=== PATIENT | female | born 1955 | race Caucasian/White ===

== ENCOUNTER 2021-12-22 17:27 | Inpatient (IN) | payer OTHER ==
[~2021-12-22] VITALS: Ht 182.9 cm; Wt 97.0 kg
[2021-12-22] MEDS ORDERED: MORPHINE SULFATE 4 MG/ML SYR/VIAL IV ONE (18:45)
[2021-12-22] MEDS ORDERED: ONDANSETRON HCL 4 MG/2 ML VIAL IV ONE (20:00)
[2021-12-22 20:09] LABS: Basophils # (auto) 0 10 ^3/uL (0-0.2); Basophils % (auto) 0.3 % (0.0-2.0); Eosinophils # (auto) 0.1 10 ^3/uL (0-0.8); Eosinophils % (auto) 0.4 % (0.0-7.0); Hematocrit 38.2 % (36.0-46.0); Hemoglobin 12.7 g/dL (12.2-16.2); Lymphocytes # (auto) 1.6 10 ^3/uL (0.4-5.4); Lymphocytes % (auto) 11.5 % (10.0-50.0); Mean Corpuscular Hemoglobin 28.8 pg (28.0-32.0); Mean Corpuscular Hgb Conc. 33.2 g/dL (32.0-36.0); Mean Corpuscular Volume 86.8 fL (80.0-100.0); Monocytes # (auto) 0.7 10 ^3/uL (0-1.3); Monocytes % (auto) 4.9 % (0.0-12.0); Neutrophils # (auto) 11.4 10 ^3/uL (1.6-8.6); Neutrophils % (auto) 82.9 % (37.0-80.0); Red Cell Distribution Width 13.9 % (11.8-14.3); White Blood Cell 13.8 10^3/uL (4.4-10.8)
[2021-12-22 20:18] LABS: INR 0.97 (0.9-1.15)
[2021-12-22 20:21] LABS: Albumin 3.7 g/dL (3.4-5.0); Potassium 4.2 mmol/L (3.5-5.1)
[2021-12-22 20:26] LABS: BUN/Creatinine Ratio 21.1; Bilirubin, Total 0.4 mg/dL (0.2-1.0); Total Protein 7.2 g/dL (6.4-8.2)
[2021-12-22 20:50] LABS: Urine Bacteria NONE SEEN /hpf (None Seen); Urine Blood Negative /uL (Negative); Urine Specific Gravity 1.008 (1.001-1.035); Urine WBC <1 /hpf (0 - 5)
[2021-12-22] MEDS ORDERED: HYDROcodone-ACET 5/325MG TAB PO PRN (21:45)
[2021-12-22] MEDS ORDERED: ACETAMINOPHEN 325 MG TAB PO PRN (21:45)
[2021-12-22] MEDS ORDERED: TEMAZEPAM 15 MG CAP PO PRN (22:00)
[2021-12-22] MEDS: MORPHINE SULFATE INJ 2 MG/ml SYRG IV PRN (22:49)
[2021-12-23 06:55] LABS: BUN/Creatinine Ratio 24.2; Basophils # (auto) 0 10 ^3/uL (0-0.2); Basophils % (auto) 0.3 % (0.0-2.0); Calcium 8.6 mg/dL (8.5-10.1); Eosinophils # (auto) 0.1 10 ^3/uL (0-0.8); Eosinophils % (auto) 0.9 % (0.0-7.0); Hematocrit 35.6 % (36.0-46.0); Hemoglobin 12.1 g/dL (12.2-16.2); Lymphocytes # (auto) 1.4 10 ^3/uL (0.4-5.4); Lymphocytes % (auto) 14.9 % (10.0-50.0); Mean Corpuscular Hemoglobin 29.3 pg (28.0-32.0); Mean Corpuscular Volume 86.2 fL (80.0-100.0); Monocytes # (auto) 0.8 10 ^3/uL (0-1.3); Monocytes % (auto) 8.6 % (0.0-12.0); Neutrophils # (auto) 7.1 10 ^3/uL (1.6-8.6); Neutrophils % (auto) 75.3 % (37.0-80.0); Potassium 4.5 mmol/L (3.5-5.1); Red Blood Cells 4.14 10^6/uL (4.0-5.20); Red Cell Distribution Width 13.5 % (11.8-14.3); White Blood Cell 9.4 10^3/uL (4.4-10.8)
[2021-12-23] MEDS: MORPHINE SULFATE INJ 2 MG/ml SYRG IV PRN ×4 (08:13→23:00)
[2021-12-23] MEDS: ONDANSETRON HCL 4 MG/2 ML VIAL IV PRN ×4 (08:13→22:59)
[2021-12-23] MEDS: LOSARTAN POTASSIUM 50 MG TAB PO SCH (09:25)
[2021-12-23] MEDS ORDERED: PANTOPRAZOLE 40 MG TAB PO SCH (10:00)
[2021-12-23 13:56] VITALS: BP 120/63
[2021-12-23 16:27] VITALS: BP 122/70
[2021-12-23 21:00] VITALS: BP 133/73
[2021-12-24] VITALS (15 sets, daily range): BP systolic 97–124; BP diastolic 52–76
[2021-12-24 03:56] LABS: Basophils # (auto) 0 10 ^3/uL (0-0.2); Basophils % (auto) 0.3 % (0.0-2.0); Eosinophils # (auto) 0.1 10 ^3/uL (0-0.8); Eosinophils % (auto) 0.7 % (0.0-7.0); Hematocrit 34.1 % (36.0-46.0); Hemoglobin 12.1 g/dL (12.2-16.2); Lymphocytes # (auto) 1.9 10 ^3/uL (0.4-5.4); Lymphocytes % (auto) 18.7 % (10.0-50.0); Mean Corpuscular Hemoglobin 30.4 pg (28.0-32.0); Mean Corpuscular Hgb Conc. 35.4 g/dL (32.0-36.0); Mean Corpuscular Volume 85.9 fL (80.0-100.0); Monocytes # (auto) 0.9 10 ^3/uL (0-1.3); Monocytes % (auto) 8.7 % (0.0-12.0); Neutrophils # (auto) 7.1 10 ^3/uL (1.6-8.6); Neutrophils % (auto) 71.6 % (37.0-80.0); Red Blood Cells 3.97 10^6/uL (4.0-5.20); Red Cell Distribution Width 13.6 % (11.8-14.3); White Blood Cell 9.9 10^3/uL (4.4-10.8)
[2021-12-24 04:10] LABS: Potassium 3.9 mmol/L (3.5-5.1)
[2021-12-24 04:16] LABS: Albumin 3.4 g/dL (3.4-5.0); BUN/Creatinine Ratio 27.3; Calcium 8.3 mg/dL (8.5-10.1)
[2021-12-24 04:18] LABS: Bilirubin, Total 0.7 mg/dL (0.2-1.0); Total Protein 6.5 g/dL (6.4-8.2)
[2021-12-24 04:19] LABS: Partial Thromboplastin Time 28.9 sec (23.6-33.0)
[2021-12-24] MEDS: MORPHINE SULFATE INJ 2 MG/ml SYRG IV PRN (04:58)
[2021-12-24] MEDS: ONDANSETRON HCL 4 MG/2 ML VIAL IV PRN (04:58)
[2021-12-24] MEDS: LOSARTAN POTASSIUM 50 MG TAB PO SCH (09:47)
[2021-12-24] MEDS ORDERED: ceFAZolin 1GM/50ML 100 ML IV ONE (10:48)
[2021-12-24] MEDS ORDERED: SUCCINYLCHOLINE CHLORIDE 20 MG/ML 10ML VIAL IV ONE (10:58)
[2021-12-24] MEDS ORDERED: TETRACAINE 1% INJ 2 ML VIAL IJ ONE (10:58)
[2021-12-24] MEDS ORDERED: BUPIVACAINE 0.25% INJ 50ML VIAL ONE (11:02)
[2021-12-24] MEDS ORDERED: MORPHINE SULF PF 5 MG/10 ML VIAL ONE (11:03)
[2021-12-24] MEDS ORDERED: fentaNYL CITRATE 100 MCG/2 ML VL ONE (11:07)
[2021-12-24] MEDS ORDERED: MIDAZOLAM HCL 2MG/2ML 2ml VIAL (1mg/ml) ONE (11:07)
[2021-12-24] MEDS ORDERED: ONDANSETRON HCL 4 MG/2 ML VIAL ONE (12:26)
[2021-12-24] MEDS ORDERED: PROPOFOL 10 MG/ML 20 ML IV ONE (12:26)
[2021-12-24] MEDS ORDERED: LIDOCAINE 2% (LOCAL ANESTH.) PF 5ml SDV ONE (12:26)
[2021-12-24] MEDS ORDERED: HYDROmorphone HCL 2 MG/ML VL/or syr IV PRN (13:00)
[2021-12-24] MEDS ORDERED: NALBUPHINE HCL 10 MG/1ml INJECTION SUBCUT ONE (13:00)
[2021-12-24] MEDS ORDERED: diphenhdrAMINE HCL 50 MG/1 ML VL IV PRN (13:00)
[2021-12-24] MEDS ORDERED: NALOXONE HCL 0.4 MG/ML VIAL IV PRN (13:00)
[2021-12-24] MEDS ORDERED: ONDANSETRON HCL 4 MG/2 ML VIAL IV PRN (13:00)
[2021-12-24] MEDS ORDERED: DexAMETHasone SOD PHOS 10MG/1ML VIAL INJ IV PRN (13:00)
[2021-12-24] MEDS: SODIUM CHLOR 0.9% PF (SALINE LOCK) 10ML VIAL/SYR IV SCH ×2 (14:04→23:59)
[2021-12-24] MEDS: LACTATED RINGER'S 1,000 ML IV SCH (14:24)
[2021-12-24] MEDS: ceFAZolin 1GM/50ML 50 ML IV SCH ×3 (14:24→23:59)
[2021-12-25] VITALS (19 sets, daily range): BP systolic 101–123; BP diastolic 59–73
[2021-12-25] MEDS: MORPHINE SULFATE INJ 2 MG/ml SYRG IV PRN (04:00)
[2021-12-25 05:34] LABS: Basophils # (auto) 0 10 ^3/uL (0-0.2); Basophils % (auto) 0.3 % (0.0-2.0); Eosinophils # (auto) 0.2 10 ^3/uL (0-0.8); Eosinophils % (auto) 1.6 % (0.0-7.0); Hemoglobin 10.3 g/dL (12.2-16.2); Lymphocytes # (auto) 1.5 10 ^3/uL (0.4-5.4); Lymphocytes % (auto) 15.2 % (10.0-50.0); Mean Corpuscular Hemoglobin 30.7 pg (28.0-32.0); Mean Corpuscular Hgb Conc. 35.5 g/dL (32.0-36.0); Mean Corpuscular Volume 86.6 fL (80.0-100.0); Monocytes # (auto) 1.1 10 ^3/uL (0-1.3); Neutrophils % (auto) 71.9 % (37.0-80.0); Red Blood Cells 3.35 10^6/uL (4.0-5.20); Red Cell Distribution Width 13.6 % (11.8-14.3); White Blood Cell 9.7 10^3/uL (4.4-10.8)
[2021-12-25] MEDS: SODIUM CHLOR 0.9% PF (SALINE LOCK) 10ML VIAL/SYR IV SCH ×3 (05:41→21:21)
[2021-12-25 05:55] LABS: Albumin 2.7 g/dL (3.4-5.0); BUN/Creatinine Ratio 20.3
[2021-12-25 06:04] LABS: Bilirubin, Total 0.6 mg/dL (0.2-1.0); Total Protein 5.6 g/dL (6.4-8.2)
[2021-12-25] MEDS ORDERED: RIVA10TA PO (08:10)
[2021-12-25] MEDS ORDERED: TRAM50TA2 PO (08:10)
[2021-12-25] MEDS: LACTATED RINGER'S 1,000 ML IV SCH ×4 (08:30→21:21)
[2021-12-25] MEDS: KETOROLAC TROMETH 30 MG/ML 1ML VIAL IV PRN ×3 (09:24→21:21)
[2021-12-25] MEDS: ENOXAPARIN SOD 40 MG/0.4 ML SYRINGE SC SCH (09:25)
[2021-12-25] MEDS: LOSARTAN POTASSIUM 50 MG TAB PO SCH (09:35)
[2021-12-25] MEDS ORDERED: ERGOCALCIFEROL 50,000 UNIT(1.25MG) CAP PO SCH (10:00)
[2021-12-26] MEDS: KETOROLAC TROMETH 30 MG/ML 1ML VIAL IV PRN ×2 (03:23→09:34)
[2021-12-26 04:57] VITALS: BP 123/65
[2021-12-26 05:30] LABS: Hematocrit 28.2 % (36.0-46.0); Hemoglobin 9.6 g/dL (12.2-16.2)
[2021-12-26] MEDS: SODIUM CHLOR 0.9% PF (SALINE LOCK) 10ML VIAL/SYR IV SCH (05:53)
[2021-12-26 07:30] VITALS: BP 121/70
[2021-12-26] MEDS ORDERED: RIVA10TA PO (08:17)
[2021-12-26] MEDS ORDERED: TRAM50TA2 PO (08:17)
[2021-12-26] MEDS: LOSARTAN POTASSIUM 50 MG TAB PO SCH (08:34)
[2021-12-26] MEDS: ENOXAPARIN SOD 40 MG/0.4 ML SYRINGE SC SCH (08:35)
[2021-12-26 08:42] VITALS: BP 105/46
[2021-12-26 12:23] VITALS: BP 125/64
== END 2021-12-26 13:30 | disposition home or self-care (01) | DRG 482 ==
LOC: ER 17:27 → EDBD 17:27 → TELE 21:39 → TELE-CENTR 12-23 13:22
PROVIDERS: ADMIT Nurse Practitioner; ATTEND Family Medicine
PROC: 0QS734Z Reposition Left Upper Femur with Internal Fixation Device, Percutaneous Approach (ICD-10-PCS; principal; 2021-12-24 11:05)
DX: S72.142A Displaced intertrochanteric fracture of left femur, initial encounter for closed fracture (principal); I10 Essential (primary) hypertension; Z20.822 Contact with and (suspected) exposure to COVID-19; W01.0XXA Fall on same level from slipping, tripping and stumbling without subsequent striking against object, initial encounter; Y93.89 Activity, other specified; Y92.89 Other specified places as the place of occurrence of the external cause; Y99.8 Other external cause status
CPT/HCPCS: 36415; 71045; 73502; 76000; 80048; 80053; 81001; 85014; 85018; 85025; 85610; 85730; 86850; 86900; 86901; 93005; 96374; 96375; 97110; 97116; 97163; 97530; A4565; C1713; G0378; J0330; J0690; J1885; J2001; J2250; J2405; J2704; J3490